=== PATIENT | female | born 1985 | race Hispanic/Latino ===

== ENCOUNTER 2022-08-26 19:00 | Inpatient (IN) | payer MEDICAID, OTHER ==
[2022-08-30 21:38] VITALS: BMI 37.0
[2022-08-30] MEDS ORDERED: Misoprostol 200 MCG TAB PR PRN (21:50)
[2022-08-30] MEDS ORDERED: Ondansetron PF 4 MG/2 ML Vial IVP PRN (21:50)
[2022-08-30] MEDS ORDERED: Ibuprofen 800 MG TAB PO PRN (21:50)
[2022-08-30] MEDS ORDERED: Lidocaine 1% (PF) 30 ML VIAL SC PRN (21:50)
[2022-08-30] MEDS ORDERED: HYDROcodone/Acetaminophen 5/325 mg Tablet PO PRN (21:50)
[2022-08-30] MEDS ORDERED: Acetaminophen 500 MG TAB PO PRN (21:50)
[2022-08-30] MEDS ORDERED: Tranexamic Acid 1,000 MG in Sodium Chloride 0.9% 250 ML 250 ML IVPB PRN (21:50)
[2022-08-30] MEDS ORDERED: hydrALAZINE 20 MG/ML VIAL SLOW IVP PRN (21:50)
[2022-08-30] MEDS ORDERED: Diphenoxylate HCl/Atropine Tablet PO PRN (21:50)
[2022-08-30] MEDS ORDERED: Promethazine HCl 25 MG/ML VIAL IM PRN (21:50)
[2022-08-30] MEDS ORDERED: Methylergonovine 0.2 MG/ML VIAL IM PRN (21:50)
[2022-08-30] MEDS ORDERED: NS w/ Oxytocin 30 units 500 ML IV SCH ×3 (21:50)
[2022-08-30] MEDS ORDERED: Butorphanol Tartrate 1 MG/ML VIAL SLOW IVP PRN (21:50)
[2022-08-30] MEDS ORDERED: Carboprost 250 MCG/ML AMP IM PRN (21:50)
[2022-08-30 22:32] LABS: Hemoglobin 11.1 g/dL (12.0-15.5); Mean Corpuscular HGB CONC 33.1 g/dL (32.0-36.0); Mean Corpuscular Hemoglobin 28.4 pg (27.0-33.0); Mean Corpuscular Volume 85.7 fl (81.6-98.3); Mean Platelet Volume 11.4 fl (7.4-10.4); Platelet Count 231 10x3/uL (150-450); Red Blood Cell (RBC) Count 3.91 10x6/uL (3.90-5.03); White Blood Cell (WBC) Count 10.5 10x3/uL (3.5-10.5)
[2022-08-30 23:01] LABS: Hep B Surf Ag - L&D Non-Reactive S/CO (NonReactive)
[2022-08-30 23:02] LABS: Syphilis Antibody Nonreactive (Nonreactive); Syphilis Antibody Index 0.03 S/CO (<1.00 Non-Reactive)
[2022-08-30] MEDS: Misoprostol 100 MCG TAB VAG SCH (23:02)
[2022-08-30] MEDS: Lactated Ringer's 1,000 ML IV SCH (23:02)
[2022-08-31] MEDS: Misoprostol 100 MCG TAB VAG SCH ×2 (06:10→22:59)
[2022-08-31] MEDS ORDERED: Fentanyl 100 MCG/2 ML VIAL ONE (06:19)
[2022-08-31] MEDS ORDERED: Fentanyl 100 MCG/2 ML VIAL SLOW IVP SCH (06:30)
[2022-08-31] MEDS ORDERED: Fentanyl 2 mcg/Bup 0.1% Cadd 100 ML ONE ×2 (07:56→15:04)
[2022-08-31] MEDS ORDERED: Moisturizing Cream (Eucerin) 113 GM JAR TOP PRN (10:42)
[2022-08-31] MEDS ORDERED: diphenhydrAMINE 50 MG/ML VIAL IVP PRN (10:42)
[2022-08-31] MEDS ORDERED: ePHEDrine Sulfate 50 MG/10 ML VIAL SLOW IVP PRN (10:42)
[2022-08-31] MEDS ORDERED: Acetaminophen 325 MG TAB PO PRN (10:42)
[2022-08-31] MEDS ORDERED: Naloxone HCl 0.4 mg/ml Vial IVP PRN ×2 (10:42)
[2022-08-31] MEDS ORDERED: Promethazine HCl 25 MG/ML VIAL IM PRN ×3 (10:42→23:01)
[2022-08-31] MEDS ORDERED: Lactated Ringer's 500 ML IV PRN (10:42)
[2022-08-31] MEDS ORDERED: Ondansetron PF 4 MG/2 ML Vial IVP PRN ×2 (10:42→23:01)
[2022-08-31] MEDS ORDERED: Communication Order-Pharmacy FS SCH (10:45)
[2022-08-31] MEDS ORDERED: Fentanyl 2 mcg/Bupivacaine 0.1% Cassette 100 ML EPIDURAL SCH (10:45)
[2022-08-31] MEDS ORDERED: Azithromycin 500 MG VIAL ONE (19:41)
[2022-08-31] MEDS ORDERED: CEFAZOLIN 2 GM VIAL ONE (19:41)
[2022-08-31] MEDS ORDERED: ePHEDrine Sulfate 50 MG/10 ML VIAL ONE (20:11)
[2022-08-31] MEDS ORDERED: Oxytocin 10 UNITS/ML VIAL ONE (20:36)
[2022-08-31] MEDS ORDERED: Ondansetron PF 4 MG/2 ML Vial ONE (20:36)
[2022-08-31] MEDS ORDERED: Dexamethasone 4 mg/ml Vial ONE (20:36)
[2022-08-31] MEDS ORDERED: HYDROmorphone 2 MG/ML VIAL SLOW IVP PRN (20:39)
[2022-08-31] MEDS ORDERED: Ketorolac Tromethamine 30 MG/ML VIAL IVP PRN (20:39)
[2022-08-31] MEDS ORDERED: Ondansetron HCl/PF 4 MG/2 ML Vial IVP PRN (20:39)
[2022-08-31] MEDS ORDERED: Meperidine HCl/PF 25 MG/ML VIAL SLOW IVP PRN (20:39)
[2022-08-31] MEDS ORDERED: Ketorolac Tromethamine 30 MG/ML VIAL ONE (21:14)
[2022-08-31] MEDS: Lactated Ringer's 1,000 ML IV SCH (22:58)
[2022-08-31] MEDS ORDERED: Lanolin Ointment 7 GM TUBE TOP PRN (23:01)
[2022-08-31] MEDS ORDERED: diphenhydrAMINE 25 MG CAP PO PRN (23:01)
[2022-08-31] MEDS ORDERED: Boostrix 0.5 ML (Tdap) VIAL (>/=7 yrs of age) IM ONE (23:01)
[2022-08-31] MEDS ORDERED: Simethicone Chewable 80 MG TAB PO PRN (23:01)
[2022-08-31] MEDS ORDERED: Bisacodyl 10 MG SUPP PR PRN (23:01)
[2022-08-31] MEDS ORDERED: HYDROcodone/Acetaminophen 5/325 mg Tablet PO PRN (23:01)
[2022-08-31] MEDS ORDERED: Meperidine HCl/PF 25 MG/ML VIAL IM PRN (23:01)
[2022-08-31] MEDS ORDERED: hydrALAZINE 20 MG/ML VIAL SLOW IVP PRN (23:01)
[2022-09-01] MEDS: Ketorolac Tromethamine 30 MG/ML VIAL IVP SCH ×3 (03:31→14:28)
[2022-09-01 05:07] LABS: Hemoglobin 9.1 g/dL (12.0-15.5); Mean Corpuscular HGB CONC 32.2 g/dL (32.0-36.0); Mean Corpuscular Hemoglobin 28.2 pg (27.0-33.0); Mean Corpuscular Volume 87.6 fl (81.6-98.3); Mean Platelet Volume 11.9 fl (7.4-10.4); Platelet Count 207 10x3/uL (150-450); RBC Distribution Width 14.1 % (11.5-14.5); Red Blood Cell (RBC) Count 3.23 10x6/uL (3.90-5.03); White Blood Cell (WBC) Count 16.8 10x3/uL (3.5-10.5)
[2022-09-01] MEDS: Lactated Ringer's 1,000 ML IV SCH (06:23)
[2022-09-01] MEDS: Docusate 100 MG CAP PO SCH ×2 (08:43→22:14)
[2022-09-01] MEDS: Prenatal Vitamin 1 TAB PO SCH (08:43)
[2022-09-01] MEDS: Ferrous Sulfate 325 MG TAB PO SCH ×2 (08:43→22:13)
[2022-09-01] MEDS: HYDROcodone/Acetaminophen 5/325 mg Tablet PO PRN ×3 (08:59→22:13)
[2022-09-01] MEDS: Ibuprofen 800 MG TAB PO SCH (22:13)
[2022-09-02] MEDS: HYDROcodone/Acetaminophen 5/325 mg Tablet PO PRN ×4 (01:24→21:52)
[2022-09-02] MEDS: Ibuprofen 800 MG TAB PO SCH ×3 (05:11→21:51)
[2022-09-02] MEDS: Prenatal Vitamin 1 TAB PO SCH (08:05)
[2022-09-02] MEDS: Docusate 100 MG CAP PO SCH ×2 (08:05→21:51)
[2022-09-02] MEDS: Ferrous Sulfate 325 MG TAB PO SCH ×2 (08:05→21:51)
[2022-09-03] MEDS: HYDROcodone/Acetaminophen 5/325 mg Tablet PO PRN ×6 (00:57→21:48)
[2022-09-03] MEDS: Ibuprofen 800 MG TAB PO SCH ×3 (04:50→21:47)
[2022-09-03] MEDS: Ferrous Sulfate 325 MG TAB PO SCH ×2 (08:40→21:47)
[2022-09-03] MEDS: Prenatal Vitamin 1 TAB PO SCH (08:40)
[2022-09-03] MEDS: Docusate 100 MG CAP PO SCH ×2 (08:40→21:47)
[2022-09-04] MEDS: HYDROcodone/Acetaminophen 5/325 mg Tablet PO PRN ×5 (00:51→16:03)
[2022-09-04] MEDS: Ibuprofen 800 MG TAB PO SCH ×2 (05:15→15:06)
[2022-09-04 07:48] VITALS: BP 113/57; TEMP 98.3
[2022-09-04] MEDS: Prenatal Vitamin 1 TAB PO SCH (08:47)
[2022-09-04] MEDS: Docusate 100 MG CAP PO SCH (08:47)
[2022-09-04] MEDS: Ferrous Sulfate 325 MG TAB PO SCH (08:47)
== END 2022-09-04 16:10 | disposition home or self-care (01) | DRG 788 ==
LOC: CSHLD 08-30 19:20 → CSHPP 08-31 23:59
PROVIDERS: ADMIT Family Medicine; ATTEND Family Medicine
PROC: 10D00Z1 Extraction of Products of Conception, Low, Open Approach (ICD-10-PCS; principal; 2022-08-31)
PROC: 3E0P7VZ Introduction of Hormone into Female Reproductive, Via Natural or Artificial Opening (ICD-10-PCS; 2022-08-31)
PROC: 3E033VJ Introduction of Other Hormone into Peripheral Vein, Percutaneous Approach (ICD-10-PCS; 2022-08-31)
PROC: 10H07YZ Insertion of Other Device into Products of Conception, Via Natural or Artificial Opening (ICD-10-PCS; 2022-08-31)
DX: O48.0 Post-term pregnancy (principal); O76 Abnormality in fetal heart rate and rhythm complicating labor and delivery; Z37.0 Single live birth; Z79.899 Other long term (current) drug therapy; Z3A.40 40 weeks gestation of pregnancy; O99.214 Obesity complicating childbirth; E66.9 Obesity, unspecified
CPT/HCPCS: 36415; 51702; 85027; 86780; 86850; 86900; 86901; 87340; J1100; J1885; J2405; J2590; J7120